=== PATIENT | male | born 1950 | race Caucasian/White ===

== ENCOUNTER 2025-02-21 13:59 | Emergency (ER) | payer OTHER | END 2025-02-21 15:15 | disposition home or self-care (01) | LOC: MERGE 13:59 → LL.ED 13:59 | DX: S16.1XXA Strain of muscle, fascia and tendon at neck level, initial encounter (principal); S60.812A Abrasion of left wrist, initial encounter; S60.811A Abrasion of right wrist, initial encounter; V49.40XA Driver injured in collision with unspecified motor vehicles in traffic accident, initial encounter | CPT/HCPCS: 72125; 99284 ==